=== PATIENT | female | born 1935 | race Caucasian/White ===

== ENCOUNTER 2019-01-10 14:32 | Inpatient (IN) | payer MEDICARE ==
[~2019-01-10] VITALS: Ht 162.6 cm; Wt 52.1 kg
[~2019-01-10 14:32] MED LIST: EPINEPHRINE 1 MG/ML, 1ML ONE; GLYCOPYRROLATE 0.2MG/1ML, 5ML ONE
--- NOTE | 2019-01-10 14:59 | NUR ---
BIB Ambulance as [facility]. Pt c/o upper abd pain 10/10 starting this morning. Pt diagnosed at transfering hospital with perforated bowel. Pt placed in gown and positioned for comfort in bed with warm blanket. Continuous oxygen, heart and BP monitors applied, all safety measures observed. Pt's daughter in law Mavis at bedside. Pt given lemon swabs to moisten mouth per request.
[2019-01-10] MEDS ORDERED: SODIUM CHLORIDE FLUSH 10ML SYR IVF ONE (15:00)
[2019-01-10] MEDS ORDERED: ALEN70TA3 PO (15:04)
[2019-01-10] MEDS ORDERED: ISOS30TA8 PO (15:04)
[2019-01-10] MEDS ORDERED: AMLO10TA8 PO (15:04)
[2019-01-10] MEDS ORDERED: MIRT30TA4 PO (15:04)
[2019-01-10] MEDS ORDERED: FERR324T18 PO (15:04)
[2019-01-10] MEDS ORDERED: CARV6.2512 PO (15:04)
[2019-01-10] MEDS ORDERED: ASPI-496 PO (15:04)
[2019-01-10] MEDS ORDERED: HYDR-3343 PO (15:04)
[2019-01-10] MEDS ORDERED: ALEN70TA6 PO (15:04)
[2019-01-10] MEDS ORDERED: MORPHINE SULFATE 4 MG/ML, 1ML ONE ×2 (15:07→15:42)
--- NOTE | 2019-01-10 15:11 | NUR ---
Pt medicated for 10/10 and pain per MAR, denies other needs.
[2019-01-10] MEDS: MORPHINE SULFATE 4 MG/ML, 1ML IVPush PRN ×2 (15:12→15:45)
[2019-01-10 15:25] LABS: BASOPHILS % (AUTO) 0 % (0-1); EOSINOPHILS # (AUTO) 0.03 x10^3/uL (0-0.4); EOSINOPHILS % (AUTO) 0 % (1-7); LYMPHOCYTES # (AUTO) 0.52 x10^3/uL (1-3.4); LYMPHOCYTES % (AUTO) 4 % (22-44); MD NO; MEAN CORPUSCULAR HEMOGLOBIN 24.2 pg (27.0-34.8); MEAN CORPUSCULAR HGB CONC 30.2 g/dL (32.4-35.8); MEAN CORPUSCULAR VOLUME 80.1 fL (80-100); MEAN PLATELET VOLUME 9.5 fL (7.4-10.4); MONOCYTES # (AUTO) 0.31 x10^3/uL (0.2-0.8); MONOCYTES % (AUTO) 2 % (2-9); NEUTROPHILS # (AUTO) 13.65 x10^3/uL (1.8-6.8); NEUTROPHILS % (AUTO) 94 % (42-75); PLATELET COUNT 339 x10^3/uL (130-400); RED BLOOD COUNT 3.42 x10^6/uL (3.82-5.3); RED CELL DISTRIBUTION WIDTH 18.9 % (9.6-15.2)
[2019-01-10] MEDS ORDERED: ONDANSETRON 2MG/ML, 2ML IVPush ONE (15:30)
[2019-01-10 15:33] LABS: ALANINE AMINOTRANSFERASE 14 U/L (12-78); ALBUMIN 2.2 g/dL (3.4-5.0); ANION GAP 10 mmol/L (5-15); CALCIUM 8.4 mg/dL (8.5-10.1); CHLORIDE 116 mmol/L (98-107); CREATININE 1.85 mg/dL (0.55-1.02)
[2019-01-10 15:35] LABS: ALKALINE PHOSPHATASE 107 U/L (45-117); BILIRUBIN,TOTAL 0.8 mg/dL (0.2-1.0); TOTAL PROTEIN 6.6 g/dL (6.4-8.2)
--- NOTE | 2019-01-10 15:39 | NUR ---
Pt states pain not improved after medications given, requesting additional pain medication.
[2019-01-10] MEDS ORDERED: ONDANSETRON 2MG/ML, 2ML ONE (15:41)
--- NOTE | 2019-01-10 15:45 | NUR ---
Pt medicated for continued pain and nausea per MAR.
--- NOTE | 2019-01-10 16:08 | NUR ---
Report to PUBLISHING DIRECTOR. Per pre op this RN to call them when Dr. Donahue arrives then they will come for pt.
--- NOTE | 2019-01-10 16:24 | NUR ---
Consent for surgery signed by pt, given to Dr. Donahue to sign. Pt to OR via [facility].
[2019-01-10] MEDS ORDERED: SODIUM CHLORIDE 0.9% 1,000ML IVBOLUS ONE (16:30)
[2019-01-10] MEDS ORDERED: FENTANYL PF 250 MCG/5ML ONE (16:40)
[2019-01-10] MEDS ORDERED: LIDOCAINE 2%, 6 ML JEL.PF.APP MM ONE (16:40)
[2019-01-10] MEDS ORDERED: PROPOFOL 10 MG/ML, 20ML ONE (16:42)
[2019-01-10] MEDS ORDERED: ROCURONIUM 10MG/ML,5ML ONE (16:43)
[2019-01-10] MEDS ORDERED: SUCCINYLCHOLINE 20 MG/ML, 10ML ONE (16:44)
[2019-01-10] MEDS ORDERED: SODIUM CHLORIDE FLUSH 10ML SYR IVF PRN (17:00)
[2019-01-10] MEDS ORDERED: ATROPINE SYRINGE 0.1 MG/ML, 10ML ONE (17:01)
[2019-01-10] MEDS ORDERED: MIDAZOLAM 1 MG/ML, 2ML ONE (18:42)
[2019-01-10] MEDS ORDERED: ENALAPRILAT 1.25 MG/ML, 2ML IVPush PRN (19:30)
[2019-01-10] MEDS ORDERED: morphine SULFATE 10 MG/ML, 1ML IVPush PRN (19:30)
[2019-01-10] MEDS ORDERED: ONDANSETRON 2MG/ML, 2ML IVPush PRN (19:30)
[2019-01-10] MEDS: PIPERACILLIN/TAZO/PMX 2.25GM 50 ML IV SCH (20:03)
[2019-01-10] MEDS: D5%-0.45NACL+KCL 20MEQ 1,000 ML IV SCH (20:03)
[2019-01-10] MEDS: FLUCONAZOLE 200 MG/100 ML 100 ML IV SCH (20:03)
[2019-01-10] MEDS ORDERED: FAMOTIDINE 20 MG/2 ML IVPush SCH (21:00)
[2019-01-10] MEDS ORDERED: DOPAMINE/D5W PMX 250 ML IV PRN (21:10)
[2019-01-10] MEDS ORDERED: GLUCAGON 1 MG IM PRN (21:30)
[2019-01-10] MEDS ORDERED: DEXTROSE 50%, 50ML SYRINGE IVPush PRN (21:30)
[2019-01-10] MEDS: ALBUTEROL/IPRATROPIUM 2.5MG/0.5MG, 3 ML INLINE SCH (21:30)
[2019-01-10] MEDS ORDERED: DEXTROSE 4 GM TAB.CHEW PO PRN (21:30)
[2019-01-10] MEDS ORDERED: FAMOTIDINE 20 MG/2 ML IV SCH (21:30)
[2019-01-10] MEDS ORDERED: LIDOCAINE-MPF 1%, 2ML ENDO PRN (21:30)
[2019-01-10] MEDS ORDERED: PHARMACY MAY ADJ FOR RENAL FX MC SCH (21:30)
[2019-01-10] MEDS: HEPARIN 5,000 UNITS/ML, 1ML SQ SCH (21:55)
[2019-01-10] MEDS: PROPOFOL 100 ML IV PRN (21:56)
[2019-01-10] MEDS: PANTOPRAZOLE 40 MG IV IVPush SCH (22:05)
[2019-01-10 22:09] LABS: MEAN CORPUSCULAR HEMOGLOBIN 24.5 pg (27.0-34.8); MEAN CORPUSCULAR HGB CONC 30.9 g/dL (32.4-35.8); MEAN CORPUSCULAR VOLUME 79.2 fL (80-100); MEAN PLATELET VOLUME 9.3 fL (7.4-10.4); PLATELET COUNT 228 x10^3/uL (130-400); RED BLOOD COUNT 3.36 x10^6/uL (3.82-5.3); RED CELL DISTRIBUTION WIDTH 18.5 % (9.6-15.2)
[2019-01-10 22:16] LABS: ANION GAP 9 mmol/L (5-15); CALCIUM 7.4 mg/dL (8.5-10.1); CHLORIDE 116 mmol/L (98-107); CREATININE 1.86 mg/dL (0.55-1.02); TRIGLYCERIDES 81 mg/dL (50-200)
[2019-01-10 22:21] LABS: INTERNATIONAL NORMALIZED RATIO 1.04 (0.93-1.1); PROTHROMBIN TIME 10.9 Seconds (9.6-11.5); TROPONIN I 0.032 ng/mL (0.000-0.045)
[2019-01-11] MEDS: D5%-0.45NACL+KCL 20MEQ 1,000 ML IV SCH (01:58)
[2019-01-11] MEDS: ALBUTEROL/IPRATROPIUM 2.5MG/0.5MG, 3 ML INLINE SCH ×6 (02:15→21:52)
[2019-01-11 03:28] LABS: CHLORIDE 116 mmol/L (98-107)
[2019-01-11 03:39] LABS: ALANINE AMINOTRANSFERASE 11 U/L (12-78); ALBUMIN 1.5 g/dL (3.4-5.0); ALKALINE PHOSPHATASE 68 U/L (45-117); ANION GAP 8 mmol/L (5-15); BILIRUBIN,TOTAL 0.3 mg/dL (0.2-1.0); CALCIUM 6.9 mg/dL (8.5-10.1); CREATININE 2.13 mg/dL (0.55-1.02); TOTAL PROTEIN 4.8 g/dL (6.4-8.2); TROPONIN I 0.029 ng/mL (0.000-0.045)
[2019-01-11] MEDS: PIPERACILLIN/TAZO/PMX 2.25GM 50 ML IV SCH ×3 (04:08→20:44)
[2019-01-11 04:13] LABS: BASOPHILS % (AUTO) 0 % (0-1); EOSINOPHILS % (AUTO) 0 % (1-7); LYMPHOCYTES # (AUTO) 0.34 x10^3/uL (1-3.4); LYMPHOCYTES % (AUTO) 4 % (22-44); MD NO; MEAN CORPUSCULAR HGB CONC 30.2 g/dL (32.4-35.8); MEAN CORPUSCULAR VOLUME 79.3 fL (80-100); MEAN PLATELET VOLUME 9.7 fL (7.4-10.4); MONOCYTES # (AUTO) 0.23 x10^3/uL (0.2-0.8); MONOCYTES % (AUTO) 3 % (2-9); NEUTROPHILS # (AUTO) 8.63 x10^3/uL (1.8-6.8); NEUTROPHILS % (AUTO) 94 % (42-75); PLATELET COUNT 217 x10^3/uL (130-400); RED BLOOD COUNT 2.92 x10^6/uL (3.82-5.3); RED CELL DISTRIBUTION WIDTH 18.3 % (9.6-15.2)
[2019-01-11] MEDS ORDERED: SODIUM BICARBONATE 8.4% 150 MEQ in DEXTROSE 5% 1,000 ML IV SCH (05:00)
[2019-01-11] MEDS ORDERED: SODIUM BICARB 8.4%, 50ML SYRINGE IVPush ONE (05:00)
[2019-01-11] MEDS ORDERED: CALCIUM GLUCONATE 4.6 MEQ in SODIUM CHLORIDE 0.9% 50 ML IV ONE (05:00)
[2019-01-11 05:59] LABS: CULTURE INDICATED? YES; MICROSCOPIC INDICATED
[2019-01-11] MEDS: HEPARIN 5,000 UNITS/ML, 1ML SQ SCH ×3 (06:51→22:50)
[2019-01-11] MEDS: INSULIN LISPRO 100 UNITS/ML, PEN SQ-INSULIN SCH ×3 (07:58→16:00)
[2019-01-11] MEDS ORDERED: TPN PER PHARMACY MC PRN (09:30)
[2019-01-11] MEDS ORDERED: ALBUMIN HUMAN 5% 500 ML IV ONE (09:30)
[2019-01-11] MEDS: D5%-0.45% NACL 1,000 ML IV SCH ×3 (10:00→19:35)
[2019-01-11 10:22] LABS: MEAN CORPUSCULAR HEMOGLOBIN 24.2 pg (27.0-34.8); MEAN CORPUSCULAR HGB CONC 30.7 g/dL (32.4-35.8); MEAN CORPUSCULAR VOLUME 78.7 fL (80-100); MEAN PLATELET VOLUME 8.9 fL (7.4-10.4); PLATELET COUNT 207 x10^3/uL (130-400); RED BLOOD COUNT 2.79 x10^6/uL (3.82-5.3); RED CELL DISTRIBUTION WIDTH 18.6 % (9.6-15.2)
[2019-01-11] MEDS: PANTOPRAZOLE 40 MG IV IVPush SCH ×2 (10:37→21:15)
[2019-01-11] MEDS: SODIUM CHLORIDE FLUSH 10ML SYR IVF SCH ×2 (10:38→20:44)
[2019-01-11] MEDS: PROPOFOL 100 ML IV PRN (10:47)
[2019-01-11 12:04] VITALS: BP 137/49
[2019-01-11 12:19] VITALS: BP 123/41
[2019-01-11 12:35] VITALS: BP 128/45
[2019-01-11 14:28] VITALS: BP 146/50
[2019-01-11] MEDS: FILTER, DISP 1.2 MICRON FOR TPN/PVN IV PRN (15:21)
[2019-01-11 15:27] LABS: ANION GAP 7 mmol/L (5-15); CALCIUM 7.1 mg/dL (8.5-10.1); CHLORIDE 112 mmol/L (98-107); CREATININE 2.27 mg/dL (0.55-1.02)
[2019-01-11 15:57] LABS: HEMOGRAM NOTE RECHECKED
[2019-01-11] MEDS ORDERED: [UNRECOGNIZED DRUG - OTHER] IV SCH (17:00)
[2019-01-11] MEDS ORDERED: FAT EMUL IV SCH (17:00)
[2019-01-11] MEDS ORDERED: DEXTROSE 10% 500 ML IV PRN (17:00)
[2019-01-11] MEDS ORDERED: AMINO ACID 10% IV SCH (17:00)
[2019-01-11] MEDS ORDERED: DEXTROSE 70% IV SCH (17:00)
[2019-01-11] MEDS ORDERED: SMOF TPN IV SCH (17:00)
[2019-01-11] MEDS: FLUCONAZOLE 200 MG/100 ML 100 ML IV SCH (19:35)
[2019-01-11] MEDS: [UNRECOGNIZED DRUG - REMARK] SQ-INSULIN SCH (21:15)
[2019-01-11 21:29] LABS: MEAN CORPUSCULAR HEMOGLOBIN 25.9 pg (27.0-34.8); MEAN CORPUSCULAR HGB CONC 31.3 g/dL (32.4-35.8); MEAN CORPUSCULAR VOLUME 82.7 fL (80-100); MEAN PLATELET VOLUME 10.3 fL (7.4-10.4); PLATELET COUNT 174 x10^3/uL (130-400); RED BLOOD COUNT 2.94 x10^6/uL (3.82-5.3)
[2019-01-11 21:46] LABS: ANION GAP 7 mmol/L (5-15); CHLORIDE 118 mmol/L (98-107)
[2019-01-11 21:47] LABS: CREATININE 1.83 mg/dL (0.55-1.02)
[2019-01-11 21:53] LABS: CALCIUM 5.4 mg/dL (8.5-10.1)
[2019-01-11] MEDS ORDERED: POTASSIUM CHLORIDE 40 MEQ in SODIUM CHLORIDE 0.9% 100 ML IV ONE (22:30)
[2019-01-12] MEDS: ALBUTEROL/IPRATROPIUM 2.5MG/0.5MG, 3 ML INLINE SCH ×6 (01:48→22:13)
[2019-01-12 03:44] LABS: BASOPHILS # (AUTO) 0.01 x10^3/uL (0-0.1); BASOPHILS % (AUTO) 0 % (0-1); EOSINOPHILS # (AUTO) 0.12 x10^3/uL (0-0.4); EOSINOPHILS % (AUTO) 1 % (1-7); LYMPHOCYTES # (AUTO) 0.51 x10^3/uL (1-3.4); LYMPHOCYTES % (AUTO) 5 % (22-44); MD NO; MEAN CORPUSCULAR HEMOGLOBIN 25.1 pg (27.0-34.8); MEAN CORPUSCULAR HGB CONC 30.9 g/dL (32.4-35.8); MEAN CORPUSCULAR VOLUME 81.3 fL (80-100); MEAN PLATELET VOLUME 9.5 fL (7.4-10.4); MONOCYTES # (AUTO) 0.44 x10^3/uL (0.2-0.8); MONOCYTES % (AUTO) 4 % (2-9); NEUTROPHILS # (AUTO) 9.45 x10^3/uL (1.8-6.8); NEUTROPHILS % (AUTO) 90 % (42-75); PLATELET COUNT 193 x10^3/uL (130-400); RED BLOOD COUNT 2.94 x10^6/uL (3.82-5.3); RED CELL DISTRIBUTION WIDTH 19.5 % (9.6-15.2)
[2019-01-12 03:57] LABS: ANION GAP 6 mmol/L (5-15); CALCIUM 6.8 mg/dL (8.5-10.1); CHLORIDE 110 mmol/L (98-107); CREATININE 2.41 mg/dL (0.55-1.02)
[2019-01-12 04:00] LABS: PREALBUMIN 8.1 mg/dL (20.0-40.0)
[2019-01-12] MEDS: D5%-0.45% NACL 1,000 ML IV SCH ×2 (04:22→15:46)
[2019-01-12] MEDS: PIPERACILLIN/TAZO/PMX 2.25GM 50 ML IV SCH ×3 (04:22→21:16)
[2019-01-12] MEDS: HEPARIN 5,000 UNITS/ML, 1ML SQ SCH ×2 (05:52→12:50)
[2019-01-12] MEDS: [UNRECOGNIZED DRUG - REMARK] SQ-INSULIN SCH ×3 (05:58→21:17)
[2019-01-12] MEDS: PANTOPRAZOLE 40 MG IV IVPush SCH ×2 (07:49→21:16)
[2019-01-12] MEDS: SODIUM CHLORIDE FLUSH 10ML SYR IVF SCH ×2 (07:49→21:16)
[2019-01-12] MEDS: FENTANYL PF 100 MCG/2ML IVPush PRN ×3 (12:57→21:16)
[2019-01-12] MEDS: PROPOFOL 100 ML IV PRN (13:54)
[2019-01-12] MEDS: FILTER, DISP 1.2 MICRON FOR TPN/PVN IV PRN (15:53)
[2019-01-12] MEDS ORDERED: [UNRECOGNIZED DRUG - OTHER] IV SCH (17:00)
[2019-01-12] MEDS ORDERED: DEXTROSE 70% IV SCH (17:00)
[2019-01-12] MEDS ORDERED: FAT EMUL IV SCH (17:00)
[2019-01-12] MEDS ORDERED: AMINO ACID 10% IV SCH (17:00)
[2019-01-12] MEDS ORDERED: SMOF TPN IV SCH (17:00)
[2019-01-12] MEDS: FLUCONAZOLE 200 MG/100 ML 100 ML IV SCH (20:01)
[2019-01-13] MEDS: D5%-0.45% NACL 1,000 ML IV SCH ×3 (00:43→19:20)
[2019-01-13] MEDS: FENTANYL PF 100 MCG/2ML IVPush PRN ×3 (00:44→14:40)
[2019-01-13] MEDS: PROPOFOL 100 ML IV PRN ×2 (00:44→17:17)
[2019-01-13] MEDS: ALBUTEROL/IPRATROPIUM 2.5MG/0.5MG, 3 ML INLINE SCH ×6 (01:26→22:30)
[2019-01-13] MEDS: PIPERACILLIN/TAZO/PMX 2.25GM 50 ML IV SCH ×3 (03:44→21:13)
[2019-01-13 04:23] LABS: ANION GAP 7 mmol/L (5-15); CALCIUM 6.9 mg/dL (8.5-10.1); CHLORIDE 106 mmol/L (98-107); CREATININE 2.52 mg/dL (0.55-1.02); TRIGLYCERIDES 107 mg/dL (50-200)
[2019-01-13 04:35] LABS: MEAN CORPUSCULAR HGB CONC 30.8 g/dL (32.4-35.8); MEAN CORPUSCULAR VOLUME 81.1 fL (80-100); MEAN PLATELET VOLUME 9.3 fL (7.4-10.4); PLATELET COUNT 173 x10^3/uL (130-400); RED BLOOD COUNT 2.81 x10^6/uL (3.82-5.3); RED CELL DISTRIBUTION WIDTH 19.7 % (9.6-15.2)
[2019-01-13] MEDS: [UNRECOGNIZED DRUG - REMARK] SQ-INSULIN SCH ×3 (05:12→21:08)
[2019-01-13 05:16] LABS: BASOPHILS # (AUTO) 0.01 x10^3/uL (0-0.1); BASOPHILS % (AUTO) 0 % (0-1); EOSINOPHILS # (AUTO) 0.25 x10^3/uL (0-0.4); EOSINOPHILS % (AUTO) 3 % (1-7); LYMPHOCYTES # (AUTO) 0.39 x10^3/uL (1-3.4); LYMPHOCYTES % (AUTO) 4 % (22-44); MD SCAN; MONOCYTES # (AUTO) 0.41 x10^3/uL (0.2-0.8); MONOCYTES % (AUTO) 4 % (2-9); NEUTROPHILS # (AUTO) 8.46 x10^3/uL (1.8-6.8); NEUTROPHILS % (AUTO) 89 % (42-75)
[2019-01-13] MEDS: SODIUM CHLORIDE FLUSH 10ML SYR IVF SCH ×2 (08:21→21:11)
[2019-01-13] MEDS: PANTOPRAZOLE 40 MG IV IVPush SCH ×2 (08:21→21:08)
[2019-01-13] MEDS ORDERED: DEXTROSE 70% IV SCH (17:00)
[2019-01-13] MEDS ORDERED: FAT EMUL IV SCH (17:00)
[2019-01-13] MEDS ORDERED: AMINO ACID 10% IV SCH (17:00)
[2019-01-13] MEDS ORDERED: SMOF TPN IV SCH (17:00)
[2019-01-13] MEDS ORDERED: [UNRECOGNIZED DRUG - OTHER] IV SCH (17:00)
[2019-01-13] MEDS: FLUCONAZOLE 200 MG/100 ML 100 ML IV SCH (19:20)
[2019-01-14] MEDS: FENTANYL PF 100 MCG/2ML IVPush PRN (00:49)
[2019-01-14] MEDS: PROPOFOL 100 ML IV PRN ×2 (02:42→09:44)
[2019-01-14] MEDS: D5%-0.45% NACL 1,000 ML IV SCH (02:42)
[2019-01-14] MEDS: ALBUTEROL/IPRATROPIUM 2.5MG/0.5MG, 3 ML INLINE SCH ×2 (02:50→07:15)
[2019-01-14] MEDS: PIPERACILLIN/TAZO/PMX 2.25GM 50 ML IV SCH (04:18)
[2019-01-14 04:31] LABS: MEAN CORPUSCULAR HEMOGLOBIN 25.6 pg (27.0-34.8); MEAN CORPUSCULAR HGB CONC 31.7 g/dL (32.4-35.8); MEAN CORPUSCULAR VOLUME 80.8 fL (80-100); MEAN PLATELET VOLUME 9.5 fL (7.4-10.4); PLATELET COUNT 162 x10^3/uL (130-400); RED BLOOD COUNT 2.75 x10^6/uL (3.82-5.3); RED CELL DISTRIBUTION WIDTH 20.1 % (9.6-15.2)
[2019-01-14 04:44] LABS: ANION GAP 9 mmol/L (5-15); CALCIUM 7.5 mg/dL (8.5-10.1); CHLORIDE 105 mmol/L (98-107)
[2019-01-14 04:56] LABS: BASOPHILS % (AUTO) 0 % (0-1); EOSINOPHILS # (AUTO) 0.24 x10^3/uL (0-0.4); EOSINOPHILS % (AUTO) 3 % (1-7); LYMPHOCYTES # (AUTO) 0.39 x10^3/uL (1-3.4); LYMPHOCYTES % (AUTO) 5 % (22-44); MD SCAN; MONOCYTES # (AUTO) 0.51 x10^3/uL (0.2-0.8); MONOCYTES % (AUTO) 6 % (2-9); NEUTROPHILS # (AUTO) 7.52 x10^3/uL (1.8-6.8); NEUTROPHILS % (AUTO) 87 % (42-75)
[2019-01-14] MEDS: [UNRECOGNIZED DRUG - REMARK] SQ-INSULIN SCH (05:45)
[2019-01-14] MEDS: PANTOPRAZOLE 40 MG IV IVPush SCH (09:44)
[2019-01-14] MEDS ORDERED: ATROPINE OPHTH SOLN 1%, 2ML PO PRN (11:30)
[2019-01-14] MEDS ORDERED: LORazepam 2 MG/ML, 1ML IV ONE (11:30)
[2019-01-14] MEDS ORDERED: morphine SULFATE 10 MG/ML, 1ML IV ONE (11:30)
[2019-01-14] MEDS: LORazepam 2 MG/ML, 1ML IV PRN ×2 (14:05→15:00)
[2019-01-14] MEDS ORDERED: [UNRECOGNIZED DRUG - OTHER] IV SCH (17:00)
[2019-01-14] MEDS ORDERED: SMOF TPN IV SCH (17:00)
[2019-01-14] MEDS ORDERED: AMINO ACID 10% IV SCH (17:00)
[2019-01-14] MEDS ORDERED: DEXTROSE 70% IV SCH (17:00)
[2019-01-14] MEDS ORDERED: FAT EMUL IV SCH (17:00)
== END 2019-01-14 23:53 | disposition expired | DRG 853 ==
LOC: ED 14:56 → EDIP 16:50 → CCU 19:11 → 3NW 01-14 16:42
PROVIDERS: ADMIT Surgery; ATTEND Surgery
PROC: 0D160ZA Bypass Stomach to Jejunum, Open Approach (ICD-10-PCS; 2019-01-10)
PROC: 0BH17EZ Insertion of Endotracheal Airway into Trachea, Via Natural or Artificial Opening (ICD-10-PCS; 2019-01-10)
PROC: 5A1945Z Respiratory Ventilation, 24-96 Consecutive Hours (ICD-10-PCS; 2019-01-10)
PROC: 0DB60ZZ Excision of Stomach, Open Approach (ICD-10-PCS; principal; 2019-01-10 13:00)
PROC: 3E0336Z Introduction of Nutritional Substance into Peripheral Vein, Percutaneous Approach (ICD-10-PCS; 2019-01-11)
PROC: 02HV33Z Insertion of Infusion Device into Superior Vena Cava, Percutaneous Approach (ICD-10-PCS; 2019-01-11)
PROC: B548ZZA Ultrasonography of Superior Vena Cava, Guidance (ICD-10-PCS; 2019-01-11)
PROC: 30233N1 Transfusion of Nonautologous Red Blood Cells into Peripheral Vein, Percutaneous Approach (ICD-10-PCS; 2019-01-11)
DX: A41.9 Sepsis, unspecified organism (principal); K25.5 Chronic or unspecified gastric ulcer with perforation; J96.01 Acute respiratory failure with hypoxia; E43 Unspecified severe protein-calorie malnutrition; K65.1 Peritoneal abscess; K65.0 Generalized (acute) peritonitis; N17.0 Acute kidney failure with tubular necrosis; K63.1 Perforation of intestine (nontraumatic); I63.9 Cerebral infarction, unspecified; E87.2 Acidosis; R18.8 Other ascites; G81.94 Hemiplegia, unspecified affecting left nondominant side; Z99.11 Dependence on respirator [ventilator] status; E87.0 Hyperosmolality and hypernatremia; D25.9 Leiomyoma of uterus, unspecified; D63.8 Anemia in other chronic diseases classified elsewhere; E87.5 Hyperkalemia; F03.90 Unspecified dementia, unspecified severity, without behavioral disturbance, psychotic disturbance, mood disturbance, and anxiety; F17.210 Nicotine dependence, cigarettes, uncomplicated; F32.9 Major depressive disorder, single episode, unspecified; I11.0 Hypertensive heart disease with heart failure; I50.9 Heart failure, unspecified; J44.9 Chronic obstructive pulmonary disease, unspecified; M19.90 Unspecified osteoarthritis, unspecified site; E83.51 Hypocalcemia; Z66 Do not resuscitate; R62.7 Adult failure to thrive; N28.1 Cyst of kidney, acquired; M81.0 Age-related osteoporosis without current pathological fracture; Z51.5 Encounter for palliative care; K66.8 Other specified disorders of peritoneum; K57.90 Diverticulosis of intestine, part unspecified, without perforation or abscess without bleeding; K29.70 Gastritis, unspecified, without bleeding; Z93.3 Colostomy status; Z79.899 Other long term (current) drug therapy
CPT/HCPCS: 36415; 36573; 36600; 70450; 71045; 80048; 80053; 81001; 82330; 82803; 82962; 83605; 83690; 83735; 84100; 84134; 84478; 84484; 85014; 85018; 85025; 85027; 85520; 85610; 85730; 86850; 86900; 86923; 87040; 87070; 87081; 87086; 87205; 88305; 88307; 88331; 93005; 93306; 94002; 94003; 94640; 96374; 96375; G0378; J0171; J0461; J0610; J1644; J1815; J2250; J2405; J2543; J2704; J3010; J3475; J3480; J7060; J7070; J7620; P9045; C1751; C9113; J0330; J1450; J2060; J2270; J3420; J3490; P9016